=== PATIENT | female | born 1960 | race Caucasian/White ===

== ENCOUNTER 2018-05-06 12:02 | Day surgery (SDC) | payer OTHER ==
[~2018-05-06 12:02] MED LIST: DEXAMETHASONE 4 MG/ML 1 ML INJ; METOCLOPRAMIDE 10 MG INJ
[2018-05-06] MEDS ORDERED: LACTATED RINGER'S 1,000 ML IV* (13:00)
[2018-05-06] MEDS ORDERED: CEFAZOLIN 1 GM/50 ML (PMX) 50 ML IVPB (13:00)
[2018-05-06] MEDS ORDERED: MIDAZOLAM 1 MG/ML 2 ML INJ (14:40)
[2018-05-06] MEDS ORDERED: FENTAnyl 50 MCG/ML VIAL (14:40)
[2018-05-06] MEDS ORDERED: PROPOFOL 20 ML (14:40)
[2018-05-06] MEDS ORDERED: LIDOCAINE 2% (SDV) 5 ML INJ (14:41)
[2018-05-06] MEDS ORDERED: ONDANSETRON 4 MG INJ (14:41)
[2018-05-06] MEDS ORDERED: CEFAZOLIN 1 GM INJ (14:42)
[2018-05-06] MEDS ORDERED: BUPIVACAINE 0.5% (SDV) 30 ML INJ (17:24)
[2018-05-06] MEDS: BUPIVACAINE 0.25% (MPF) 10 ML 10 ML VIAL INJ (17:30)
[2018-05-06] MEDS ORDERED: hydrALAzine 20 MG INJ IV (18:00)
[2018-05-06] MEDS ORDERED: MEPERIDINE 25 MG INJ IV (18:00)
[2018-05-06] MEDS ORDERED: HYDROmorphONE 1 MG/5 ML IV SYRINGE IV ×2 (18:00)
[2018-05-06] MEDS ORDERED: KETOROLAC 30 MG INJ IV (18:00)
[2018-05-06] MEDS ORDERED: DIPHENHYDRAMINE 50 MG INJ IV (18:00)
[2018-05-06] MEDS ORDERED: FENTAnyl 50 MCG/ML VIAL IV ×2 (18:00)
[2018-05-06] MEDS ORDERED: LABETALOL HCL 20MG INJ IV (18:00)
[2018-05-06] MEDS ORDERED: ONDANSETRON 4 MG INJ IV (18:00)
== END 2018-05-06 18:57 | disposition home or self-care (01) ==
LOC: SDS 12:02
DX: M67.431 Ganglion, right wrist (principal)
CPT/HCPCS: 25111; 88304